=== PATIENT | female | born 1945 | race Caucasian/White ===

== ENCOUNTER → 2021-09-19 | Outpatient (CLI) | payer MEDICARE ==
--- NOTE | 2021-09-19 15:08 | RAD ---
EXAMINATION: CT abdomen and pelvis without IV contrast. INDICATION:75 years, Female, kidney stones. TECHNIQUE: Axial CT images of the abdomen and pelvis were obtained. Coronal and sagittal reformatted performed. COMPARISON: None. Exposure: One or more of the following individualized dose reduction techniques were utilized for thi s examination: 1. Automated exposure control 2. Adjustment of the mA and/or kV according to patient size 3. Use of iterative reconstruction technique. FINDINGS: LOWER CHEST: Calcified granuloma in the left lung base. Emphysematous changes in bibasilar lungs. ABDOMEN/PELVIS: Within the limitation of noncontrast exam, There are 4 punctate nonobstructing right nephrolithiasis measuring up to 2 mm. No left nephrolithias is. No hydronephrosis in either kidney. Overdistended urinary bladder. Hysterectomy changes. Normal size and morphology of the liver. Calcified granulomas in the liver and spleen. No splenomegal y. Cholecystectomy. No biliary ductal lesion. Atrophic pancreatic parenchyma. No adrenal nodule. No b owel obstruction. Appendix is not visualized. Large amount of stool in the rectum. Moderate aortoilia c atherosclerotic calcifications without dilation. No pneumoperitoneum or ascites. No lymphadenopathy in the abdomen or pelvis by size criteria. MUSCULOSKELETAL STRUCTURES: Anterior midline abdominal skin eloisa. Chronic appearing mild compression deformity of the superior endplate of L1, L2, L3 and L5 vertebral bodies. Chronic deformity in the left superior pubic ramus a nd pubic body. Sacralization of L5. IMPRESSION: 1. Punctate nonobstructing right nephrolithiasis. No hydronephrosis. 2. Large rectal stool burden. Correlate for constipation. Electronically signed by: Conner Cruz MD (09/19/2021 3:05 PM) [facility]
== END ==
LOC: CT 14:21
PROVIDERS: ATTEND Internal Medicine
DX: N20.0 Calculus of kidney (principal); K56.41 Fecal impaction; I70.0 Atherosclerosis of aorta; M43.27 Fusion of spine, lumbosacral region
CPT/HCPCS: 74176

== ENCOUNTER 2022-01-04 04:49 | Inpatient (IN) | payer MEDICARE ==
[~2022-01-04] VITALS: Ht 167.6 cm; Wt 55.2 kg
--- NOTE | 2022-01-04 05:08 | PHYS DOC ---
Past Medical History Additional Past Medical Histor: RESP FAILURE, HYPERLIPIDEMIA, WEAKNESS Past Surgical History: Cholecystectomy, Hysterectomy, Knee Replacement Additional Past Surgical Histo: R BREAST, CARPAL TUNNEL, BACK, E General Adult EDM: Chief Complaint: SHORTNESS OF BREATH HPI: HPI: Patient is a 76 year old female [facility] Patient has a history of CHF COPD currently on 2 L of nasal cannula supplemental oxygen at baseline comes in with shortness of breath. Patient reports orthopnea. States that started approximately 2 days ago, but became worse overnight. Patient denies any fevers or chills. Denies any cough. Patient denies any chest pain. Patient does admit to smoking up to 5 cigarettes a day. Review of Systems: Review of Systems: Constitutional: Denies fever or chills. [] Eyes: Denies change in visual acuity. [] HENT: Denies nasal congestion or sore throat. [] Respiratory: Shortness of breath. [] Cardiovascular: Orthopnea dyspnea on exertion denies chest pain or edema. [] GI: Denies abdominal pain, nausea, vomiting, bloody stools or diarrhea. [] : Denies dysuria. [] Musculoskeletal: Denies back pain or joint pain. [] Integument: Denies rash. [] Neurologic: Denies headache, focal weakness or sensory changes. [] Endocrine: Denies polyuria or polydipsia. [] Lymphatic: Denies swollen glands. [] Psychiatric: Denies depression or anxiety. [] Heart Score: C/O Chest Pain: No Risk Factors: Risk Factors: DM, Current or recent (<one month) smoker, HTN, HLP, family history of CAD, obesity. Risk Scores: Score 0 - 3: 2.5% MACE over next 6 weeks - Discharge Home Score 4 - 6: 20.3% MACE over next 6 weeks - Admit for Clinical Observation Score 7 - 10: 72.7% MACE over next 6 weeks - Early Invasive Strategies Current Medications: Current Medications Medications (Trade) Dose Ordered Sig/Melvi Start Time Stop Time Status Last Admin Dose Admin Albuterol Sulfate (Ventolin Neb Soln) 2.5 mg 1X ONCE 01/04/22 05:30 01/04/22 05:31 Allergies: Allergies: Allergies Coded Allergies Type Severity Reaction Last Updated Verified prednisone Allergy Severe 01/04/22 Yes Penicillins Allergy Intermediate 01/04/22 Yes Sulfa (Sulfonamide Antibiotics) Allergy Intermediate 01/04/22 Yes tramadol Allergy Intermediate 01/04/22 Yes Physical Exam: PE: Constitutional: Patient is frail , no acute distress, non-toxic appearance. [] HENT: Normocephalic, atraumatic, bilateral external ears normal, oropharynx moist, no oral exudates, nose normal. [] Eyes: PERRLA, EOMI, conjunctiva normal, no discharge. [] Neck: Normal range of motion, no tenderness, supple, no stridor. [] Cardiovascular:Heart rate regular rhythm, no murmur [] Lungs & Thorax: Perihilar wheezing. Patient has rales heard in both lungs bilaterally. Labored breathing tachypneic. Abdomen: Bowel sounds normal, soft, no tenderness, no masses, no pulsatile masses. [] Skin: Warm, dry, no erythema, no rash. [] Back: No tenderness, no CVA tenderness. [] Extremities: No tenderness, no cyanosis, no clubbing, ROM intact, no edema. [] Neurologic: Alert and oriented X 3, normal motor function, normal sensory function, no focal deficits noted. [] Psychologic: Affect normal, judgement normal, mood normal. [] Current Patient Data: Vital Signs: Vital Signs Date Time Temp Pulse Resp B/P (MAP) Pulse Ox O2 Delivery O2 Flow Rate FiO2 01/04/22 05:01 98.4 74 27 166/79 (108) 97 Nasal Cannula 3.0 98.4 EKG: EKG: [] Patient is EKG demonstrates normal sinus rhythm with a heart rate of 74 with a QTC of 425 and a KS interval of 130. Otherwise normal EKG with no signs of ischemia Radiology/Procedures: Radiology/Procedures: [] Course & Med Decision Making: Course & Med Decision Making Pertinent Labs and Imaging studies reviewed. (See chart for details) []Discussed case with Dr Mckeon, patient admitted. Started on macrolide for COPD exacerbation. Dragon Disclaimer: Dragon Disclaimer: This electronic medical record was generated, in whole or in part, using a voice recognition dictation system. Departure Departure Referrals: CLARY MCKEON MD (PCP) NATASHA MATTA DO Jan 04, 2022 05:08
[2022-01-04 05:12] LABS: BASO # 0.1 x10^3/uL (0.0-0.2); BASO % 1 % (0-3); EOS # 0.3 x10^3/uL (0.0-0.7); EOS % 3 % (0-3); HEMATOCRIT 42.7 % (36.0-47.0); HEMOGLOBIN 14.5 g/dL (12.0-15.5); LYMPH # 1.7 x10^3/uL (1.0-4.8); LYMPH % 15 % (24-48); MEAN CORPUSCULAR HEMOGLOBIN 32 pg (25-35); MEAN CORPUSCULAR HGB CONC 34 g/dL (31-37); MEAN CORPUSCULAR VOLUME 94 fL (79-100); MONO # 0.7 x10^3/uL (0.0-1.1); MONO % 6 % (0-9); NEUT # 8.4 x10^3/uL (1.8-7.7); NEUT % 76 % (31-73); PLATELET COUNT 235 x10^3/uL (140-400); RED BLOOD COUNT 4.56 x10^6/uL (3.50-5.40); RED CELL DISTRIBUTION WIDTH 13.8 % (11.5-14.5)
[2022-01-04] MEDS ORDERED: NITROGLYCERIN SUBLINGUAL 0.4 MG BOTTLE OF 25. SL PRN (05:15)
[2022-01-04 05:27] LABS: CALCIUM 9.2 mg/dL (8.5-10.1); CREATININE 1.1 mg/dL (0.6-1.0); GFR 48.4; POTASSIUM 4.8 mmol/L (3.5-5.1)
--- NOTE | 2022-01-04 05:27 | EKG ---
[facility] [address] [place] [address] Test Date: 2022-01-04 Test Time: 05:00:21 Pat Name: WILIAM KERR Department: Room: Gender: F Keno Writer / Runner: : 1945 Requested By: NATASHA MATTA Order Number: [id number] Reading MD: Tai Tinoco Measurements Intervals [place] Rate: 74 P: 90 [place]: 130 QRS: 65 QRSD: 70 T: 66 QT: 378 QTc: 425 Interpretive Statements SINUS RHYTHM Electronically Signed On 01-07-2022 17:26:38 CDT by Tai Tinoco
[2022-01-04] MEDS ORDERED: methylPREDNISolone SOD SUCC PF 40 MG/ML VIAL. IV ONE (05:30)
[2022-01-04] MEDS ORDERED: ALBUTEROL SULFATE 2.5 MG/3 ML NEBU. NEB ONE (05:30)
[2022-01-04 05:34] LABS: ALBUMIN 3.8 g/dL (3.4-5.0); ALBUMIN/GLOBULIN RATIO 0.9 (1.0-1.7); TOTAL BILIRUBIN 0.6 mg/dL (0.2-1.0); TOTAL PROTEIN 8.2 g/dL (6.4-8.2)
[2022-01-04] MEDS ORDERED: AZITHROMYCIN 250 MG TABLET. PO ONE ×2 (06:00→06:30)
[2022-01-04 06:07] LABS: BACTERIA,URINE FEW /HPF (0-FEW); RBC,URINE 0 /HPF (0-2)
--- NOTE | 2022-01-04 06:35 | RAD ---
Study: XR CHEST 1V Indication: Shortness of breath. Comparison: None. Findings: Hyperexpanded lungs. Generalized interstitial prominence with some superimposed reticular opacities s uch as at the upper right lung. No confluent airspace infiltrate. Several small granulomas. No layeri ng effusion or pneumothorax. The cardiomediastinal silhouette is within normal limits for size. Symmetric james. Aortic calcific at herosclerosis. ACDF construct. Osteopenia. Impression: 1. No acute radiographic abnormality of the chest. 2. Probable underlying emphysema with scattered pleuroparenchymal scarring. Electronically signed by: FABIO BENNETT MD (01/04/2022 6:33 AM) [facility]
[2022-01-04 07:00] VITALS: BP 116/47
[2022-01-04] MEDS ORDERED: GABA-585 PO (09:52)
[2022-01-04] MEDS ORDERED: MENT7.6L2 PO (09:52)
[2022-01-04] MEDS ORDERED: SODI50DR NS (09:52)
[2022-01-04] MEDS ORDERED: BISA10SU55 RC (09:52)
[2022-01-04] MEDS ORDERED: LOPE2TAB27 PO (09:52)
[2022-01-04] MEDS ORDERED: HYDR30CR74 TP (09:52)
[2022-01-04] MEDS ORDERED: ACET325T21 PO (09:52)
[2022-01-04] MEDS ORDERED: DEXT15DR5 EACHEYE (09:52)
[2022-01-04] MEDS ORDERED: HALO2TAB PO (09:52)
[2022-01-04] MEDS ORDERED: ESCITALOPRAM OX10 MG PO (09:52)
--- NOTE | 2022-01-04 10:00 | NUR ---
Admission note: The patient Jackeline Marks 76 y/o female admitted due to COPD exacerbation. She arrived on the unit via stretcher at 0710. She is AOx 4, on 3 liters oxygen per nasal cannula, VSS, and denies pain. Her home meds were reconciled and belongings checked. The patient ambulates short distances with standby assist, uses wheelchair, and oxygen in [facility]. The patient was oriented to the unit and call light placed within reach.
[2022-01-04] MEDS ORDERED: TRAZ-123 PO (10:05)
[2022-01-04] MEDS ORDERED: IPRA3AMP29 NEB (10:05)
[2022-01-04] MEDS ORDERED: MAGN400O7 PO (10:05)
[2022-01-04] MEDS ORDERED: ONDA4TAB12 PO (10:05)
[2022-01-04] MEDS ORDERED: OXYC10TA PO (10:05)
[2022-01-04] MEDS ORDERED: UMEC62.5 IH (10:05)
[2022-01-04] MEDS ORDERED: MOR20SL SL (10:05)
[2022-01-04] MEDS ORDERED: SENN-82 PO (10:05)
[2022-01-04] MEDS ORDERED: CETI10TA74 PO (10:05)
[2022-01-04] MEDS ORDERED: PHEN100C PO (10:05)
[2022-01-04] MEDS ORDERED: PROVENTIL HFA6.7 G2 INH (10:05)
[2022-01-04 11:00] VITALS: BP 110/42
[2022-01-04] MEDS: NICOTINE 7MG PATCH. TD SCH (11:26)
[2022-01-04] MEDS ORDERED: IV DEXTROSE 5% 250 ML BAG. IV PRN (11:30)
[2022-01-04] MEDS ORDERED: IPRATRPIUM/ALBUTEROL 0.5/2.5MG 3 ML NEBU. NEB PRN (11:30)
[2022-01-04] MEDS ORDERED: SENNOSIDES/DOCUSATE 8.6/50MG TABLET. PO PRN (11:30)
[2022-01-04] MEDS ORDERED: ACETAMINOPHEN 325 MG TABLET. PO PRN (11:30)
[2022-01-04] MEDS ORDERED: DEXTROSE 50% 25 GM / 50ML DISP.SYRIN. IV PRN (11:30)
[2022-01-04] MEDS ORDERED: HYDROCORTISONE 2.5% RECTAL CREAM 30GM TUBE. TP PRN (11:30)
[2022-01-04] MEDS ORDERED: ONDANSETRON ODT 4 MG TAB.RAPDIS. PO PRN (11:30)
[2022-01-04] MEDS ORDERED: MORPHINE SULFATE 20 MG/ML CONC SOLUTION. SL PRN (11:30)
[2022-01-04] MEDS ORDERED: NON FORMULARY ITEM (Albuterol Sulfate (Proventil Hfa) 2 PUFF) INH PRN (11:30)
[2022-01-04] MEDS ORDERED: LOPERAMIDE 2 MG CAPSULE PO PRN (12:00)
[2022-01-04] MEDS ORDERED: BISACODYL 10 MG SUPP.RECT. RC SCH (12:00)
[2022-01-04] MEDS: INSULIN LISPRO 300 UNITS/3 ML VIAL. SQ SCH ×2 (12:00→16:43)
[2022-01-04] MEDS ORDERED: oxyCODONE IR 5 MG TABLET PO PRN (12:15)
--- NOTE | 2022-01-04 12:15 | HP ---
DATE OF SERVICE: 01/04/2022 ADMIT DATE: 01/04/2022 HISTORY OF PRESENT ILLNESS: The patient is a 76-year-old female patient, a resident at [facility] in [place] and who presented to the Emergency Room with a complaint of shortness of breath that has been going on for a few days. She did complain also of orthopnea. All her symptoms started 2 days ago and worsened progressively overnight. Denied any fever or chills. Denied any chest pain. She unfortunately continued to smoke up to 5 cigarettes a day. She was extensively investigated in the Emergency Room, has had lab work and imaging studies. Her lab work was unremarkable. White cell count was slightly elevated at 11,000 and has had a chest x-ray, which showed that the lungs are hyperexpanded, generalized interstitial prominence with some superimposed reticular opacities such as at the upper right lung. No confluent airspace infiltrates, several small granulomas. No layering, effusion or pneumothorax. The cardiomediastinal silhouette is within normal limits of size, symmetric james, aortic calcific atherosclerosis. She has ACDF construct in her neck with osteopenia and the impression was no acute radiographic abnormality of the chest, probable underlying emphysema with scattered pleural parenchymal scarring. The patient was admitted with COPD exacerbation and she was treated with IV Solu-Medrol and Zithromax and was admitted for further evaluation. She continued to be on oxygen at 3 liters per nasal cannula. PAST MEDICAL HISTORY: Significant for type 2 diabetes mellitus, hypertension, hyperlipidemia, gastroesophageal reflux disease, chronic constipation, chronic hypoxic respiratory failure, chronic diastolic congestive heart failure, seizure disorder, depression. She is known to have also history of chronic kidney disease and nondisplaced left medial patellar fracture. PAST SURGICAL HISTORY: Significant for C6-C7 ACDF with C5-C7 plating and bone grafting, history of tonsillectomy, appendectomy, cholecystectomy, total abdominal hysterectomy, bilateral salpingo-oophorectomy and left total knee arthroplasty. ALLERGIES: SHE IS ALLERGIC TO PREDNISONE, TRAMADOL, PENICILLIN AND SULFA DRUGS. CODE STATUS: DNR/DNI. FAMILY HISTORY: Noncontributory. SOCIAL HISTORY: She is , is [facility] She has 1 daughter. She unfortunately continued to smoke at least 5 cigarettes a day, does not drink alcohol or use recreational drugs. She is a retired RECORDS TECHNICIAN. REVIEW OF SYSTEMS: As per history of present illness. PHYSICAL EXAMINATION: GENERAL: On arrival to the Emergency Room, she was somewhat tachypneic. She was pale and cachectic, but not jaundiced or cyanosed, no lymphadenopathy, no thyromegaly, no jugular venous distention. No lower limb edema. VITAL SIGNS: Her heart rate was 74, blood pressure was 166/79, temperature was 98.4, respiratory rate was 27 and oxygen saturation was 97% on 3 liters of oxygen. HEAD, EYES, EARS, NOSE, AND THROAT: Normocephalic, atraumatic. NECK: Supple. HEART: Showed normal first and second heart sounds. No gallop, rub or murmur. CHEST: Shows central trachea, equally reduced expansion, reduced air entry, bilateral diffuse rhonchi. I could not appreciate any crepitation. ABDOMEN: Scaphoid, soft, nontender. NEUROLOGIC: She is awake, alert, responding appropriately. All cranial nerves intact. She moves extremities without difficulty. She ambulates with a walker. LABORATORY DATA: On arrival to the Emergency Room showed a white cell count of 11,000; hemoglobin 14; hematocrit 42; MCV 94 and platelet count of 235,000. Her chemistry showed a serum sodium 135, potassium 4.8, chloride 99, bicarbonate 31, anion gap of 5, BUN 17, creatinine 1.1. Estimated GFR was 48 mL per minute. Her glucose 158, calcium was 9.2. Total bilirubin, AST, ALT were normal. Alkaline phosphatase slightly elevated. Her beta natriuretic peptide was only 67. Total protein 8.2, albumin was 3.8. Her urinalysis essentially unremarkable and her coronavirus rapid antigen testing was negative. ASSESSMENT: The patient was admitted with acute exacerbation of chronic obstructive pulmonary disease. The patient has a multitude of other medical problems including: A. Type 2 diabetes mellitus. B. Hypertension. C. Hyperlipidemia. D. Gastroesophageal reflux disease. E. Chronic diastolic congestive heart failure. F. Seizure disorder. PLAN: My plan is to continue with all her medications and continue with Solu-Medrol 40 mg IV every 8 hours. Continue with antibiotic. I will repeat her labs again tomorrow. LAYNE/ELDER/MARIA DOLORES DR: LAYNE/jose martin TID: [id number]
[2022-01-04] MEDS: CITALOPRAM 20 MG TABLET. PO SCH (12:33)
[2022-01-04] MEDS: CETIRIZINE HCL 10 MG TABLET. PO SCH (12:33)
[2022-01-04] MEDS ORDERED: ALBUTEROL SULFATE 2.5 MG/3 ML NEBU. NEB PRN (12:45)
[2022-01-04] MEDS ORDERED: IPRATRPIUM/ALBUTEROL 0.5/2.5MG 3 ML NEBU. NEB SCH (13:00)
--- NOTE | 2022-01-04 13:12 | PDOC ---
PULMONARY PROGRESS NOTES DATE: 01/04/22 TIME: 13:12 Vitals Vital Signs Date Time Temp Pulse Resp B/P (MAP) Pulse Ox O2 Delivery O2 Flow Rate FiO2 01/04/22 11:58 95 Nasal Cannula 2.0 01/04/22 11:00 98.4 58 19 110/42 (64) 98.4 Labs Laboratory Tests Test 01/04/22 05:05 01/04/22 05:12 01/04/22 05:30 01/04/22 11:34 White Blood Count 11.0 x10^3/uL (4.0-11.0) Red Blood Count 4.56 x10^6/uL (3.50-5.40) Hemoglobin 14.5 g/dL (12.0-15.5) Hematocrit 42.7 % (36.0-47.0) Mean Corpuscular Volume 94 fL (79-100) Mean Corpuscular Hemoglobin 32 pg (25-35) Mean Corpuscular Hemoglobin Concent 34 g/dL (31-37) Red Cell Distribution Width 13.8 % (11.5-14.5) Platelet Count 235 x10^3/uL (140-400) Neutrophils (%) (Auto) 76 % (31-73) Lymphocytes (%) (Auto) 15 % (24-48) Monocytes (%) (Auto) 6 % (0-9) Eosinophils (%) (Auto) 3 % (0-3) Basophils (%) (Auto) 1 % (0-3) Neutrophils # (Auto) 8.4 x10^3/uL (1.8-7.7) Lymphocytes # (Auto) 1.7 x10^3/uL (1.0-4.8) Monocytes # (Auto) 0.7 x10^3/uL (0.0-1.1) Eosinophils # (Auto) 0.3 x10^3/uL (0.0-0.7) Basophils # (Auto) 0.1 x10^3/uL (0.0-0.2) Sodium Level 135 mmol/L (136-145) Potassium Level 4.8 mmol/L (3.5-5.1) Chloride Level 99 mmol/L (98-107) Carbon Dioxide Level 31 mmol/L (21-32) Anion Gap 5 (6-14) Blood Urea Nitrogen 17 mg/dL (7-20) Creatinine 1.1 mg/dL (0.6-1.0) Estimated GFR (Cockcroft-Gault) 48.4 BUN/Creatinine Ratio 15 (6-20) Glucose Level 158 mg/dL (70-99) Calcium Level 9.2 mg/dL (8.5-10.1) Total Bilirubin 0.6 mg/dL (0.2-1.0) Aspartate Amino Transf (AST/SGOT) 22 U/L (15-37) Alanine Aminotransferase (ALT/SGPT) 15 U/L (14-59) Alkaline Phosphatase 123 U/L (46-116) UP-Cwo-K-Type Natriuretic Peptide 67 pg/mL (0-449) Total Protein 8.2 g/dL (6.4-8.2) Albumin 3.8 g/dL (3.4-5.0) Albumin/Globulin Ratio 0.9 (1.0-1.7) SARS-CoV-2 Antigen (Rapid) Negative (NEGATIVE) Urine Collection Type Unknown Urine Color (Auto) Light yellow Urine Turbidity Clear Urine pH (Auto) 5.0 (<5.0-8.0) Urine Specific [place] 1.012 (1.000-1.030) Urine Protein (Auto) Negative mg/dL (Negative) Urine Glucose (Auto)(UA) Negative mg/dL (Negative) Urine Ketones (Auto) Negative mg/dL (Negative) Urine Blood (Auto) Negative (Negative) Urine Nitrite (Auto) Negative (Negative) Urine Bilirubin (Auto) Negative (Negative) Urine Urobilinogen (Auto) Normal mg/dL (Normal) Urine Leukocyte Esterase (Auto) Negative (Negative) Urine RBC 0 /HPF (0-2) Urine WBC 1-4 /HPF (0-4) Urine Squamous Epithelial Cells Mod /LPF Urine Bacteria Few /HPF (0-FEW) Glucose (Fingerstick) 146 mg/dL (70-99) Laboratory Tests Test 01/04/22 05:05 01/04/22 05:12 01/04/22 05:30 01/04/22 11:34 White Blood Count 11.0 x10^3/uL (4.0-11.0) Red Blood Count 4.56 x10^6/uL (3.50-5.40) Hemoglobin 14.5 g/dL (12.0-15.5) Hematocrit 42.7 % (36.0-47.0) Mean Corpuscular Volume 94 fL (79-100) Mean Corpuscular Hemoglobin 32 pg (25-35) Mean Corpuscular Hemoglobin Concent 34 g/dL (31-37) Red Cell Distribution Width 13.8 % (11.5-14.5) Platelet Count 235 x10^3/uL (140-400) Neutrophils (%) (Auto) 76 % (31-73) Lymphocytes (%) (Auto) 15 % (24-48) Monocytes (%) (Auto) 6 % (0-9) Eosinophils (%) (Auto) 3 % (0-3) Basophils (%) (Auto) 1 % (0-3) Neutrophils # (Auto) 8.4 x10^3/uL (1.8-7.7) Lymphocytes # (Auto) 1.7 x10^3/uL (1.0-4.8) Monocytes # (Auto) 0.7 x10^3/uL (0.0-1.1) Eosinophils # (Auto) 0.3 x10^3/uL (0.0-0.7) Basophils # (Auto) 0.1 x10^3/uL (0.0-0.2) Sodium Level 135 mmol/L (136-145) Potassium Level 4.8 mmol/L (3.5-5.1) Chloride Level 99 mmol/L (98-107) Carbon Dioxide Level 31 mmol/L (21-32) Anion Gap 5 (6-14) Blood Urea Nitrogen 17 mg/dL (7-20) Creatinine 1.1 mg/dL (0.6-1.0) Estimated GFR (Cockcroft-Gault) 48.4 BUN/Creatinine Ratio 15 (6-20) Glucose Level 158 mg/dL (70-99) Calcium Level 9.2 mg/dL (8.5-10.1) Total Bilirubin 0.6 mg/dL (0.2-1.0) Aspartate Amino Transf (AST/SGOT) 22 U/L (15-37) Alanine Aminotransferase (ALT/SGPT) 15 U/L (14-59) Alkaline Phosphatase 123 U/L (46-116) ME-Rav-T-Type Natriuretic Peptide 67 pg/mL (0-449) Total Protein 8.2 g/dL (6.4-8.2) Albumin 3.8 g/dL (3.4-5.0) Albumin/Globulin Ratio 0.9 (1.0-1.7) SARS-CoV-2 Antigen (Rapid) Negative (NEGATIVE) Urine Collection Type Unknown Urine Color (Auto) Light yellow Urine Turbidity Clear Urine pH (Auto) 5.0 (<5.0-8.0) Urine Specific [place] 1.012 (1.000-1.030) Urine Protein (Auto) Negative mg/dL (Negative) Urine Glucose (Auto)(UA) Negative mg/dL (Negative) Urine Ketones (Auto) Negative mg/dL (Negative) Urine Blood (Auto) Negative (Negative) Urine Nitrite (Auto) Negative (Negative) Urine Bilirubin (Auto) Negative (Negative) Urine Urobilinogen (Auto) Normal mg/dL (Normal) Urine Leukocyte Esterase (Auto) Negative (Negative) Urine RBC 0 /HPF (0-2) Urine WBC 1-4 /HPF (0-4) Urine Squamous Epithelial Cells Mod /LPF Urine Bacteria Few /HPF (0-FEW) Glucose (Fingerstick) 146 mg/dL (70-99) Medications Active Scripts Medications Dose Route/Sig Max Daily Dose Days Date Category Zyrtec (Cetirizine Hcl) 10 Mg Tablet 1 Tab PO DAILY 01/04/22 Reported Ondansetron Odt (Ondansetron) 4 Mg Tab.rapdis 1 Tab PO PRN Q6-8HRS 01/04/22 Reported Trazodone Hcl 100 Mg Tablet 1 Tab PO QHS 01/04/22 Reported Senna S Tablet (Sennosides/Docusate Sodium) 1 Each Tablet 1 Each PO PRN DAILY PRN 01/04/22 Reported Proventil Hfa (Albuterol Sulfate) 6.7 Gm Hfa.aer.ad 2 Puff INH PRN Q6HRS PRN 01/04/22 Reported Dilantin (Phenytoin Sodium Extended) 100 Mg Capsule 2 Cap PO HS 01/04/22 Reported Oxycodone Hcl Immed.release (Oxycodone Hcl) 10 Mg Tablet 1 Tab PO PRN Q4HRS PRN MDD 3 Tablet(s) 30 01/04/22 Reported Roxanol Conc (Morphine Sulfate) 20 Mg/1 Ml Solution 0.5 Ml SL PRN Q2HR PRN 01/04/22 Reported Milk Of Magnesia (Magnesium Hydroxide) 400 Mg/5 Ml Oral.susp 30 Ml PO DAILY 01/04/22 Reported Duoneb 0.5-3(2.5) Mg/3 Ml (Albuterol/Ipratropium) 3 Ml Ampul.neb 3 Ml NEB PRN Q6HRS PRN 01/04/22 Reported Incruse Ellipta (Umeclidinium [place]) 62.5 Mcg Blst.w.dev 62.5 Mcg IH DAILY 01/04/22 Reported Loperamide (Loperamide Hcl) 2 Mg Tablet 2 Mg PO PRN Q6HRS PRN 01/04/22 Reported Hydrocortisone 30 Gm Cream.appl 1 Darrell TP PRN Q2HR PRN 7 01/04/22 Reported Haloperidol 2 Mg Tablet 0.5 Tab PO QHS 01/04/22 Reported Gabapentin (Gabapentin) 100 Mg Capsule 200 Mg PO TID 01/04/22 Reported Escitalopram Oxalate 10 Mg Tablet 0.5 Tab PO DAILY 01/04/22 Reported Cough Drops (Menthol) 7.6 Mg Lozenge 1 Tab PO PRN Q2HR PRN 3 01/04/22 Reported Dulcolax (Bisacodyl) 10 Mg Supp.rect 1 Supp RC Q3DAYS 10 01/04/22 Reported [place] Saline (Sodium Chloride) 50 Ml Drops 2 Drop NS TID 01/04/22 Reported Artificial Tears Eye Drops (Dextran 70/Hypromellose) 15 Ml Drops 2 Drop EACHEYE TID 01/04/22 Reported Acetaminophen 325 Mg Tablet 2 Tab PO PRN Q4-6HRS PRN 24 01/04/22 Reported Impression . For consult dictated Acute exacerbation COPD Concur with current medical management MARCY LILLY MD Jan 04, 2022 13:12
[2022-01-04] MEDS ORDERED: SODIUM CHL/ALOE VERA NASAL GEL 14.1GM TUBE. NS SCH (14:00)
[2022-01-04] MEDS ORDERED: POLYVINYL ALCOHOL 1.4% OPHTH SOLUTION 15ML BOTTLE. OU SCH (14:00)
[2022-01-04 15:00] VITALS: BP 123/49
[2022-01-04] MEDS: GABAPENTIN 100 MG CAPSULE. PO SCH ×2 (15:07→21:44)
[2022-01-04] MEDS: methylPREDNISolone SOD SUCC PF 40 MG/ML VIAL. IV SCH ×2 (15:07→23:00)
[2022-01-04] MEDS ORDERED: POLYVINYL ALCOHOL 1.4% OPHTH SOLUTION 15ML BOTTLE. OU PRN (15:15)
[2022-01-04] MEDS ORDERED: SODIUM CHL/ALOE VERA NASAL GEL 14.1GM TUBE. NS PRN (15:30)
[2022-01-04 19:00] VITALS: BP 111/53
[2022-01-04] MEDS: PHENYTOIN SODIUM EXTENDED 100 MG CAPSULE PO SCH (21:43)
[2022-01-04] MEDS: traZODone 100 MG TABLET. PO SCH (21:43)
[2022-01-04] MEDS: HALOPERIDOL 2 MG TABLET. PO SCH (21:43)
--- NOTE | 2022-01-04 21:53 | CONS ---
DATE OF CONSULTATION: 01/04/2022 ATTENDING PHYSICIAN: Louie Cuevas MD CONSULTING PHYSICIAN: Ronald Ford MD REASON FOR CONSULTATION: The patient is seen in pulmonary consultation at the request of Dr. Cuevas for increasing shortness of air. HISTORY OF PRESENT ILLNESS: The patient is a 76-year-old with chronic respiratory failure, normally on 2 liters of oxygen supplementation. She resides at [facility] and has been there for approximately 8 months. She smokes approximately 5-10 cigarettes per day. Presented with increasing shortness of breath, wheeze, unable to tolerate activities of daily living. She had a chest x-ray, which I personally reviewed. There are some chronic changes. She was admitted. I was asked to see her in consultation. The patient continues to wheeze and be short of breath. She is unable to tolerate walking from the bed to the bathroom without becoming severely short of breath and tachycardic. PAST MEDICAL HISTORY: Remarkable for chronic respiratory failure, hyperlipidemia, COPD, tobacco dependent, type 2 diabetes, hypertension, gastroesophageal reflux, chronic diastolic heart failure, depression, seizure disorder. She also has a history of chronic kidney disease. PAST SURGICAL HISTORY: She has had multiple surgeries including spine surgery including plating and bone grafting. She has a history of tonsillectomy, appendectomy, cholecystectomy, total abdominal hysterectomy, total knee arthroplasty. ALLERGIES: PREDNISONE, TRAMADOL, PENICILLIN AND SULFA. FAMILY HISTORY: Noncontributory. SOCIAL HISTORY: She is . She resides at [facility]. Smokes 5-10 cigarettes per day. REVIEW OF SYSTEMS: As indicated above, otherwise a 10-point system was reviewed and negative. CURRENT MEDICATIONS: List was reviewed. She is receiving Zithromax, ceftriaxone, nebulized treatment and Solu-Medrol. VACCINATION HISTORY: The patient is up to date with Pneumovax, influenza, and COVID-19. PHYSICAL EXAMINATION: VITAL SIGNS: Stable. O2 saturation was greater than 92%. HEENT: Eyes: The sclerae were nonicteric. NECK: Jugular venous distention was not elevated. No lymphadenopathy. CHEST: Full expansion. LUNGS: Both inspiratory and expiratory wheeze, prolonged expiratory phase. CARDIOVASCULAR: Regular rate and rhythm with S1, S2, no S3. ABDOMEN: Soft. EXTREMITIES: No clubbing or cyanosis. No pitting edema. NEUROLOGIC: The patient was awake, alert, following commands. A detailed neuro exam was not performed. LABORATORY DATA: White count was normal, hemoglobin and hematocrit were noted. Sodium was low. BUN was normal. Creatinine was slightly elevated. Chest x-ray as indicated above revealing some chronic changes. IMPRESSION: 1. Acute on chronic hypoxemic respiratory failure secondary to acute exacerbation of chronic obstructive pulmonary disease. 2. Acute exacerbation of chronic obstructive pulmonary disease. 3. Abnormal x-ray revealing underlying an emphysematous and pleural parenchymal scarring along with possible interstitial lung disease. 4. Tobacco dependent. 5. Other comorbidities as indicated above. PLAN: 1. Continue current IV steroids. 2. Empiric antibiotics for acute nonspecific bronchitis. 3. I think allergy is also a contributing factor. Continue antihistamines. 4. Follow clinical course and make recommendations. 5. Outpatient pulmonary function testing and low-dose screening test for lung cancer. I do appreciate the privilege in sharing in the patient's care. ROSALINDA DR: Esme TID: [id number]
[2022-01-04 23:00] VITALS: BP 93/45
[2022-01-05 03:00] VITALS: BP 100/44
[2022-01-05] MEDS: methylPREDNISolone SOD SUCC PF 40 MG/ML VIAL. IV SCH ×3 (05:59→21:19)
[2022-01-05 07:00] VITALS: BP 112/48
[2022-01-05] MEDS: INSULIN LISPRO 300 UNITS/3 ML VIAL. SQ SCH ×3 (08:00→17:00)
[2022-01-05 08:04] LABS: BASO % 0 % (0-3); EOS % 0 % (0-3); HEMATOCRIT 41.3 % (36.0-47.0); HEMOGLOBIN 13.7 g/dL (12.0-15.5); LYMPH # 1.8 x10^3/uL (1.0-4.8); LYMPH % 19 % (24-48); MEAN CORPUSCULAR HEMOGLOBIN 31 pg (25-35); MEAN CORPUSCULAR HGB CONC 33 g/dL (31-37); MEAN CORPUSCULAR VOLUME 94 fL (79-100); MONO # 0.4 x10^3/uL (0.0-1.1); MONO % 4 % (0-9); NEUT # 7.4 x10^3/uL (1.8-7.7); NEUT % 77 % (31-73); PLATELET COUNT 240 x10^3/uL (140-400); RED BLOOD COUNT 4.39 x10^6/uL (3.50-5.40); RED CELL DISTRIBUTION WIDTH 13.6 % (11.5-14.5); WHITE BLOOD COUNT 9.6 x10^3/uL (4.0-11.0)
--- NOTE | 2022-01-05 08:59 | PDOC ---
PULMONARY PROGRESS NOTES DATE: 01/05/22 TIME: 08:59 Subjective Patient continues to wheeze she short of breath moving from bed to bathroom, she becomes lightheaded Vitals Vital Signs Date Time Temp Pulse Resp B/P (MAP) Pulse Ox O2 Delivery O2 Flow Rate FiO2 01/05/22 07:00 97.5 60 16 112/48 (69) 98 97.5 01/04/22 20:00 Nasal Cannula 3.0 ROS: No Nausea, No Chest Pain, No Abdominal Pain, No Increase Cough General: Alert Lungs: Wheezing Cardiovascular: S1, S2 Abdomen: Soft, Non-tender Neuro Exam: Alert Extremities: No Edema Skin: Warm Labs Laboratory Tests Test 01/04/22 05:05 01/04/22 05:12 01/04/22 05:30 01/04/22 11:34 White Blood Count 11.0 x10^3/uL (4.0-11.0) Red Blood Count 4.56 x10^6/uL (3.50-5.40) Hemoglobin 14.5 g/dL (12.0-15.5) Hematocrit 42.7 % (36.0-47.0) Mean Corpuscular Volume 94 fL (79-100) Mean Corpuscular Hemoglobin 32 pg (25-35) Mean Corpuscular Hemoglobin Concent 34 g/dL (31-37) Red Cell Distribution Width 13.8 % (11.5-14.5) Platelet Count 235 x10^3/uL (140-400) Neutrophils (%) (Auto) 76 % (31-73) Lymphocytes (%) (Auto) 15 % (24-48) Monocytes (%) (Auto) 6 % (0-9) Eosinophils (%) (Auto) 3 % (0-3) Basophils (%) (Auto) 1 % (0-3) Neutrophils # (Auto) 8.4 x10^3/uL (1.8-7.7) Lymphocytes # (Auto) 1.7 x10^3/uL (1.0-4.8) Monocytes # (Auto) 0.7 x10^3/uL (0.0-1.1) Eosinophils # (Auto) 0.3 x10^3/uL (0.0-0.7) Basophils # (Auto) 0.1 x10^3/uL (0.0-0.2) Sodium Level 135 mmol/L (136-145) Potassium Level 4.8 mmol/L (3.5-5.1) Chloride Level 99 mmol/L (98-107) Carbon Dioxide Level 31 mmol/L (21-32) Anion Gap 5 (6-14) Blood Urea Nitrogen 17 mg/dL (7-20) Creatinine 1.1 mg/dL (0.6-1.0) Estimated GFR (Cockcroft-Gault) 48.4 BUN/Creatinine Ratio 15 (6-20) Glucose Level 158 mg/dL (70-99) Calcium Level 9.2 mg/dL (8.5-10.1) Total Bilirubin 0.6 mg/dL (0.2-1.0) Aspartate Amino Transf (AST/SGOT) 22 U/L (15-37) Alanine Aminotransferase (ALT/SGPT) 15 U/L (14-59) Alkaline Phosphatase 123 U/L (46-116) DS-Uil-H-Type Natriuretic Peptide 67 pg/mL (0-449) Total Protein 8.2 g/dL (6.4-8.2) Albumin 3.8 g/dL (3.4-5.0) Albumin/Globulin Ratio 0.9 (1.0-1.7) SARS-CoV-2 Antigen (Rapid) Negative (NEGATIVE) Urine Collection Type Unknown Urine Color (Auto) Light yellow Urine Turbidity Clear Urine pH (Auto) 5.0 (<5.0-8.0) Urine Specific [place] 1.012 (1.000-1.030) Urine Protein (Auto) Negative mg/dL (Negative) Urine Glucose (Auto)(UA) Negative mg/dL (Negative) Urine Ketones (Auto) Negative mg/dL (Negative) Urine Blood (Auto) Negative (Negative) Urine Nitrite (Auto) Negative (Negative) Urine Bilirubin (Auto) Negative (Negative) Urine Urobilinogen (Auto) Normal mg/dL (Normal) Urine Leukocyte Esterase (Auto) Negative (Negative) Urine RBC 0 /HPF (0-2) Urine WBC 1-4 /HPF (0-4) Urine Squamous Epithelial Cells Mod /LPF Urine Bacteria Few /HPF (0-FEW) Glucose (Fingerstick) 146 mg/dL (70-99) Test 01/04/22 16:39 01/04/22 19:47 01/05/22 06:25 01/05/22 07:22 Glucose (Fingerstick) 100 mg/dL (70-99) 191 mg/dL (70-99) 124 mg/dL (70-99) White Blood Count 9.6 x10^3/uL (4.0-11.0) Red Blood Count 4.39 x10^6/uL (3.50-5.40) Hemoglobin 13.7 g/dL (12.0-15.5) Hematocrit 41.3 % (36.0-47.0) Mean Corpuscular Volume 94 fL (79-100) Mean Corpuscular Hemoglobin 31 pg (25-35) Mean Corpuscular Hemoglobin Concent 33 g/dL (31-37) Red Cell Distribution Width 13.6 % (11.5-14.5) Platelet Count 240 x10^3/uL (140-400) Neutrophils (%) (Auto) 77 % (31-73) Lymphocytes (%) (Auto) 19 % (24-48) Monocytes (%) (Auto) 4 % (0-9) Eosinophils (%) (Auto) 0 % (0-3) Basophils (%) (Auto) 0 % (0-3) Neutrophils # (Auto) 7.4 x10^3/uL (1.8-7.7) Lymphocytes # (Auto) 1.8 x10^3/uL (1.0-4.8) Monocytes # (Auto) 0.4 x10^3/uL (0.0-1.1) Eosinophils # (Auto) 0.0 x10^3/uL (0.0-0.7) Basophils # (Auto) 0.0 x10^3/uL (0.0-0.2) Laboratory Tests Test 01/04/22 11:34 01/04/22 16:39 01/04/22 19:47 01/05/22 06:25 Glucose (Fingerstick) 146 mg/dL (70-99) 100 mg/dL (70-99) 191 mg/dL (70-99) White Blood Count 9.6 x10^3/uL (4.0-11.0) Red Blood Count 4.39 x10^6/uL (3.50-5.40) Hemoglobin 13.7 g/dL (12.0-15.5) Hematocrit 41.3 % (36.0-47.0) Mean Corpuscular Volume 94 fL (79-100) Mean Corpuscular Hemoglobin 31 pg (25-35) Mean Corpuscular Hemoglobin Concent 33 g/dL (31-37) Red Cell Distribution Width 13.6 % (11.5-14.5) Platelet Count 240 x10^3/uL (140-400) Neutrophils (%) (Auto) 77 % (31-73) Lymphocytes (%) (Auto) 19 % (24-48) Monocytes (%) (Auto) 4 % (0-9) Eosinophils (%) (Auto) 0 % (0-3) Basophils (%) (Auto) 0 % (0-3) Neutrophils # (Auto) 7.4 x10^3/uL (1.8-7.7) Lymphocytes # (Auto) 1.8 x10^3/uL (1.0-4.8) Monocytes # (Auto) 0.4 x10^3/uL (0.0-1.1) Eosinophils # (Auto) 0.0 x10^3/uL (0.0-0.7) Basophils # (Auto) 0.0 x10^3/uL (0.0-0.2) Test 01/05/22 07:22 Glucose (Fingerstick) 124 mg/dL (70-99) Medications Active Scripts Medications Dose Route/Sig Max Daily Dose Days Date Category Zyrtec (Cetirizine Hcl) 10 Mg Tablet 1 Tab PO DAILY 01/04/22 Reported Ondansetron Odt (Ondansetron) 4 Mg Tab.rapdis 1 Tab PO PRN Q6-8HRS 01/04/22 Reported Trazodone Hcl 100 Mg Tablet 1 Tab PO QHS 01/04/22 Reported Senna S Tablet (Sennosides/Docusate Sodium) 1 Each Tablet 1 Each PO PRN DAILY PRN 01/04/22 Reported Proventil Hfa (Albuterol Sulfate) 6.7 Gm Hfa.aer.ad 2 Puff INH PRN Q6HRS PRN 01/04/22 Reported Dilantin (Phenytoin Sodium Extended) 100 Mg Capsule 2 Cap PO HS 01/04/22 Reported Oxycodone Hcl Immed.release (Oxycodone Hcl) 10 Mg Tablet 1 Tab PO PRN Q4HRS PRN MDD 3 Tablet(s) 30 01/04/22 Reported Roxanol Conc (Morphine Sulfate) 20 Mg/1 Ml Solution 0.5 Ml SL PRN Q2HR PRN 01/04/22 Reported Milk Of Magnesia (Magnesium Hydroxide) 400 Mg/5 Ml Oral.susp 30 Ml PO DAILY 01/04/22 Reported Duoneb 0.5-3(2.5) Mg/3 Ml (Albuterol/Ipratropium) 3 Ml Ampul.neb 3 Ml NEB PRN Q6HRS PRN 01/04/22 Reported Incruse Ellipta (Umeclidinium [place]) 62.5 Mcg Blst.w.dev 62.5 Mcg IH DAILY 01/04/22 Reported Loperamide (Loperamide Hcl) 2 Mg Tablet 2 Mg PO PRN Q6HRS PRN 01/04/22 Reported Hydrocortisone 30 Gm Cream.appl 1 Darrell TP PRN Q2HR PRN 7 01/04/22 Reported Haloperidol 2 Mg Tablet 0.5 Tab PO QHS 01/04/22 Reported Gabapentin (Gabapentin) 100 Mg Capsule 200 Mg PO TID 01/04/22 Reported Escitalopram Oxalate 10 Mg Tablet 0.5 Tab PO DAILY 01/04/22 Reported Cough Drops (Menthol) 7.6 Mg Lozenge 1 Tab PO PRN Q2HR PRN 3 01/04/22 Reported Dulcolax (Bisacodyl) 10 Mg Supp.rect 1 Supp RC Q3DAYS 10 01/04/22 Reported Victor Saline (Sodium Chloride) 50 Ml Drops 2 Drop NS TID 01/04/22 Reported Artificial Tears Eye Drops (Dextran 70/Hypromellose) 15 Ml Drops 2 Drop EACHEYE TID 01/04/22 Reported Acetaminophen 325 Mg Tablet 2 Tab PO PRN Q4-6HRS PRN 24 01/04/22 Reported Impression . IMPRESSION: 1. Acute on chronic hypoxemic respiratory failure secondary to acute exacerbation of chronic obstructive pulmonary disease. 2. Acute exacerbation of chronic obstructive pulmonary disease. 3. Abnormal x-ray revealing underlying an emphysematous and pleural parenchymal scarring along with possible interstitial lung disease. 4. Tobacco dependent. 5. Other comorbidities as indicated above. P Plan . Updated 01/05 Patient continues to wheeze, short of breath going from bed to bathroom, at times lightheaded Not safe to discharge home today Will ask PT to evaluate PLAN: 1. Continue current IV steroids. 2. Empiric antibiotics for acute nonspecific bronchitis. 3. I think allergy is also a contributing factor. Continue antihistamines. 4. Follow clinical course and make recommendations. 5. Outpatient pulmonary function testing and low-dose screening test for lung cancer. I do appreciate the privilege in sharing in the patient's care. MARCY LILLY MD Jan 05, 2022 08:59
[2022-01-05] MEDS ORDERED: NON FORMULARY ITEM (Umeclidinium Bromide (Incruse Ellipta) 62.5 MCG) IH SCH (09:00)
[2022-01-05] MEDS: MAGNESIUM HYDROXIDE 2,400 MG/30 ML ORAL.SUSP. PO SCH (09:00)
[2022-01-05 09:35] LABS: ALBUMIN 3.3 g/dL (3.4-5.0); ALBUMIN/GLOBULIN RATIO 0.8 (1.0-1.7); CREATININE 1.1 mg/dL (0.6-1.0); GFR 48.4; POTASSIUM 4.6 mmol/L (3.5-5.1); TOTAL BILIRUBIN 0.3 mg/dL (0.2-1.0); TOTAL PROTEIN 7.2 g/dL (6.4-8.2)
[2022-01-05] MEDS: NICOTINE 7MG PATCH. TD SCH (10:00)
[2022-01-05] MEDS: BENZOCAINE/MENTHOL LOZENGE. PO PRN ×2 (10:00→21:15)
[2022-01-05] MEDS: CETIRIZINE HCL 10 MG TABLET. PO SCH (10:00)
[2022-01-05] MEDS: CITALOPRAM 20 MG TABLET. PO SCH (10:00)
[2022-01-05] MEDS: GABAPENTIN 100 MG CAPSULE. PO SCH ×3 (10:00→21:15)
[2022-01-05 11:00] VITALS: BP 114/54
[2022-01-05 15:00] VITALS: BP 140/67
[2022-01-05] MEDS: AZITHROMYCIN 250 MG TABLET. PO SCH (18:25)
[2022-01-05 19:00] VITALS: BP 122/80
--- NOTE | 2022-01-05 20:41 | PN ---
DATE: 01/05/2022 SUBJECTIVE: The patient is resting, propped up in bed, continued to complain of cough with scanty sputum. She also continued to have chest tightness and marked wheezing. Unfortunately, SHE IS ALLERGIC TO PREDNISONE and states she starts itching when she take it, although she is tolerating IV Solu-Medrol. PHYSICAL EXAMINATION: GENERAL: When I examined her, she looked pale, cachectic, but no jaundiced or cyanosed. No thyromegaly. No jugular venous distention. No limb edema. VITAL SIGNS: Her heart rate was 60, blood pressure was 112/48, temperature 97.5, respiratory rate was 16 and oxygen saturation was 98% on 3 liters of oxygen. HEAD, EYES, EARS, NOSE, AND THROAT: Normocephalic, atraumatic. NECK: Supple. HEART: Showed normal first and second heart sounds. No gallop or murmur. CHEST: Shows central trachea, equally reduced expansion, reduced air entry, vesicular breath sounds with diffuse bilateral rhonchi. I could not appreciate any crepitation. ABDOMEN: Scaphoid, soft, nontender. NEUROLOGIC: She is grossly intact. Her intake was 980, no output was recorded. LABORATORY DATA: As of this morning showed a white cell count of 9.6, hemoglobin 13.7, hematocrit 41, MCV 94 and platelet count 240,000. Her chemistry showed a serum sodium 139, potassium 4.6, chloride 100, bicarbonate 30, anion gap of 9, BUN 24, creatinine 1.1. Estimated GFR was 48 mL per minute. Her glucose 119, calcium was 9. Total bilirubin, AST, ALT, alkaline phosphatase were normal. Total protein 7.2, albumin 3.3. ASSESSMENT: 1. Acute exacerbation of chronic obstructive pulmonary disease. 2. Acute bronchitis. 3. Chronic hypoxic respiratory failure. 4. The patient has multiple other medical problems including: A. Type 2 diabetes mellitus. B. Hypertension. C. Hyperlipidemia. D. Gastroesophageal reflux disease. E. Chronic diastolic congestive heart failure. F. Seizure disorder. G. Chronic kidney disease. PLAN: My plan is to continue 1 more day with IV steroids. She continued to be very wheezy and tight tomorrow. We will switch her to oral dexamethasone as SHE IS ALLERGIC TO PREDNISONE and then will be discharged back to [facility]. LAYNE/DARLINE DR: LAYNE/jose martin TID: [id number]
[2022-01-05] MEDS: LACTOBACILLUS RHAMNOSUS GG 1 CAPSULE. PO SCH (21:15)
[2022-01-05] MEDS: traZODone 100 MG TABLET. PO SCH (21:15)
[2022-01-05] MEDS: HALOPERIDOL 2 MG TABLET. PO SCH (21:17)
[2022-01-05] MEDS: PHENYTOIN SODIUM EXTENDED 100 MG CAPSULE PO SCH (21:17)
[2022-01-05 23:00] VITALS: BP 105/50
[2022-01-06] MEDS: methylPREDNISolone SOD SUCC PF 40 MG/ML VIAL. IV SCH (05:56)
[2022-01-06 07:00] VITALS: BP 116/50
[2022-01-06] MEDS: INSULIN LISPRO 300 UNITS/3 ML VIAL. SQ SCH ×2 (08:00→12:00)
[2022-01-06] MEDS: CITALOPRAM 20 MG TABLET. PO SCH (08:59)
[2022-01-06] MEDS: GABAPENTIN 100 MG CAPSULE. PO SCH (08:59)
[2022-01-06] MEDS: LACTOBACILLUS RHAMNOSUS GG 1 CAPSULE. PO SCH (08:59)
[2022-01-06] MEDS: NICOTINE 7MG PATCH. TD SCH (08:59)
[2022-01-06] MEDS: AZITHROMYCIN 250 MG TABLET. PO SCH (08:59)
[2022-01-06] MEDS: BENZOCAINE/MENTHOL LOZENGE. PO PRN (08:59)
[2022-01-06] MEDS: CETIRIZINE HCL 10 MG TABLET. PO SCH (08:59)
[2022-01-06] MEDS: MAGNESIUM HYDROXIDE 2,400 MG/30 ML ORAL.SUSP. PO SCH (09:00)
--- NOTE | 2022-01-06 09:34 | PDOC ---
PULMONARY PROGRESS NOTES DATE: 01/06/22 TIME: 09:33 Subjective Patient feels better and wants to go home. Vitals Vital Signs Date Time Temp Pulse Resp B/P (MAP) Pulse Ox O2 Delivery O2 Flow Rate FiO2 01/06/22 08:37 96 Nasal Cannula 2.0 01/06/22 07:00 97.9 53 16 116/50 (72) 97.9 ROS: No Nausea, No Chest Pain, No Abdominal Pain, No Increase Cough General: Alert Lungs: Wheezing (Improved) Cardiovascular: S1, S2 Abdomen: Soft, Non-tender Neuro Exam: Alert Extremities: No Edema Skin: Warm Labs Laboratory Tests Test 01/04/22 11:34 01/04/22 16:39 01/04/22 19:47 01/05/22 06:25 Glucose (Fingerstick) 146 mg/dL (70-99) 100 mg/dL (70-99) 191 mg/dL (70-99) White Blood Count 9.6 x10^3/uL (4.0-11.0) Red Blood Count 4.39 x10^6/uL (3.50-5.40) Hemoglobin 13.7 g/dL (12.0-15.5) Hematocrit 41.3 % (36.0-47.0) Mean Corpuscular Volume 94 fL (79-100) Mean Corpuscular Hemoglobin 31 pg (25-35) Mean Corpuscular Hemoglobin Concent 33 g/dL (31-37) Red Cell Distribution Width 13.6 % (11.5-14.5) Platelet Count 240 x10^3/uL (140-400) Neutrophils (%) (Auto) 77 % (31-73) Lymphocytes (%) (Auto) 19 % (24-48) Monocytes (%) (Auto) 4 % (0-9) Eosinophils (%) (Auto) 0 % (0-3) Basophils (%) (Auto) 0 % (0-3) Neutrophils # (Auto) 7.4 x10^3/uL (1.8-7.7) Lymphocytes # (Auto) 1.8 x10^3/uL (1.0-4.8) Monocytes # (Auto) 0.4 x10^3/uL (0.0-1.1) Eosinophils # (Auto) 0.0 x10^3/uL (0.0-0.7) Basophils # (Auto) 0.0 x10^3/uL (0.0-0.2) Sodium Level 139 mmol/L (136-145) Potassium Level 4.6 mmol/L (3.5-5.1) Chloride Level 100 mmol/L (98-107) Carbon Dioxide Level 30 mmol/L (21-32) Anion Gap 9 (6-14) Blood Urea Nitrogen 24 mg/dL (7-20) Creatinine 1.1 mg/dL (0.6-1.0) Estimated GFR (Cockcroft-Gault) 48.4 BUN/Creatinine Ratio 22 (6-20) Glucose Level 119 mg/dL (70-99) Calcium Level 9.0 mg/dL (8.5-10.1) Total Bilirubin 0.3 mg/dL (0.2-1.0) Aspartate Amino Transf (AST/SGOT) 15 U/L (15-37) Alanine Aminotransferase (ALT/SGPT) 17 U/L (14-59) Alkaline Phosphatase 111 U/L (46-116) Total Protein 7.2 g/dL (6.4-8.2) Albumin 3.3 g/dL (3.4-5.0) Albumin/Globulin Ratio 0.8 (1.0-1.7) Test 01/05/22 07:22 01/05/22 11:37 01/05/22 17:13 01/05/22 19:52 Glucose (Fingerstick) 124 mg/dL (70-99) 174 mg/dL (70-99) 108 mg/dL (70-99) 175 mg/dL (70-99) Test 01/06/22 07:40 Glucose (Fingerstick) 112 mg/dL (70-99) Laboratory Tests Test 01/05/22 11:37 01/05/22 17:13 01/05/22 19:52 01/06/22 07:40 Glucose (Fingerstick) 174 mg/dL (70-99) 108 mg/dL (70-99) 175 mg/dL (70-99) 112 mg/dL (70-99) Medications Active Scripts Medications Dose Route/Sig Max Daily Dose Days Date Category Zyrtec (Cetirizine Hcl) 10 Mg Tablet 1 Tab PO DAILY 01/04/22 Reported Ondansetron Odt (Ondansetron) 4 Mg Tab.rapdis 1 Tab PO PRN Q6-8HRS 01/04/22 Reported Trazodone Hcl 100 Mg Tablet 1 Tab PO QHS 01/04/22 Reported Senna S Tablet (Sennosides/Docusate Sodium) 1 Each Tablet 1 Each PO PRN DAILY PRN 01/04/22 Reported Proventil Hfa (Albuterol Sulfate) 6.7 Gm Hfa.aer.ad 2 Puff INH PRN Q6HRS PRN 01/04/22 Reported Dilantin (Phenytoin Sodium Extended) 100 Mg Capsule 2 Cap PO HS 01/04/22 Reported Oxycodone Hcl Immed.release (Oxycodone Hcl) 10 Mg Tablet 1 Tab PO PRN Q4HRS PRN MDD 3 Tablet(s) 30 01/04/22 Reported Roxanol Conc (Morphine Sulfate) 20 Mg/1 Ml Solution 0.5 Ml SL PRN Q2HR PRN 01/04/22 Reported Milk Of Magnesia (Magnesium Hydroxide) 400 Mg/5 Ml Oral.susp 30 Ml PO DAILY 01/04/22 Reported Duoneb 0.5-3(2.5) Mg/3 Ml (Albuterol/Ipratropium) 3 Ml Ampul.neb 3 Ml NEB PRN Q6HRS PRN 01/04/22 Reported Incruse Ellipta (Umeclidinium [place]) 62.5 Mcg Blst.w.dev 62.5 Mcg IH DAILY 01/04/22 Reported Loperamide (Loperamide Hcl) 2 Mg Tablet 2 Mg PO PRN Q6HRS PRN 01/04/22 Reported Hydrocortisone 30 Gm Cream.appl 1 Darrell TP PRN Q2HR PRN 7 01/04/22 Reported Haloperidol 2 Mg Tablet 0.5 Tab PO QHS 01/04/22 Reported Gabapentin (Gabapentin) 100 Mg Capsule 200 Mg PO TID 01/04/22 Reported Escitalopram Oxalate 10 Mg Tablet 0.5 Tab PO DAILY 01/04/22 Reported Cough Drops (Menthol) 7.6 Mg Lozenge 1 Tab PO PRN Q2HR PRN 3 01/04/22 Reported Dulcolax (Bisacodyl) 10 Mg Supp.rect 1 Supp RC Q3DAYS 10 01/04/22 Reported [place] Saline (Sodium Chloride) 50 Ml Drops 2 Drop NS TID 01/04/22 Reported Artificial Tears Eye Drops (Dextran 70/Hypromellose) 15 Ml Drops 2 Drop EACHEYE TID 01/04/22 Reported Acetaminophen 325 Mg Tablet 2 Tab PO PRN Q4-6HRS PRN 24 01/04/22 Reported Impression . IMPRESSION: 1. Acute on chronic hypoxemic respiratory failure secondary to acute exacerbation of chronic obstructive pulmonary disease. 2. Acute exacerbation of chronic obstructive pulmonary disease. 3. Abnormal x-ray revealing underlying an emphysematous and pleural parenchymal scarring along with possible interstitial lung disease. 4. Tobacco dependent. 5. Other comorbidities as indicated above. Plan . Updated 01/06 Patient feels better today. She wants to go home. We will start tapering the steroids. Empiric antibiotics. Continue home oxygen. Smoking cessation counseling provided. She is not interested in quitting tob acco. She has been a smoker for 45 years. Outpatient pulmonary function test. RENETTA SINGH MD Jan 06, 2022 09:34
[2022-01-06] MEDS ORDERED: AZIT250T PO (10:02)
[2022-01-06] MEDS ORDERED: DEXA6TAB6 PO (10:02)
--- NOTE | 2022-01-06 10:06 | SNU/HH DC ---
DISCHARGE ORDERS DISCHARGE INFORMATION: DISCHARGE DATE: Jan 06, 2022 FINAL DIAGNOSIS Problems Medical Problems: (1) COPD exacerbation Status: Acute CONDITION ON DISCHARGE: Stable CODE STATUS: Code Status: Full RETIREMENT: SNF STAY <30 DAYS: Yes POST DISCHARGE ORDERS: ACTIVITY ORDERS: Activity as tolerated DIET AFTER DISCHARGE: Regular TREATMENT/EQUIPMENT ORDERS: RESPIRATORY EQUIPMENT NEEDED: Oxygen Physical Therapy For: Evalulation/Treatment Occupational Therapy For: Evaluation/Treatment DISCHARGE MEDICATIONS: Home Meds Active Scripts Azithromycin (ZITHROMAX) 250 Mg Tablet, 250 MG PO DAILY for ANTI-BIOTIC for 5 Days, #5 TAB 0 Refills Prov:CLARY MCKEON MD 01/06/22 Dexamethasone (Decadron) 6 Mg Tablet, 6 MG PO DAILY for copd eXAC for 4 Days, #4 TAB Prov:CLARY MCKEON MD 01/06/22 Reported Medications Cetirizine Hcl (ZYRTEC) 10 Mg Tablet, 1 TAB PO DAILY for itching, #30 TAB 2 Refills 01/04/22 Ondansetron (ONDANSETRON ODT) 4 Mg Tab.rapdis, 1 TAB PO PRN Q6-8HRS for nausea or vomiting, #16 TAB 01/04/22 Trazodone Hcl (TRAZODONE HCL) 100 Mg Tablet, 1 TAB PO QHS for insomnia and unstable mood, #30 TAB 1 Refill 01/04/22 Sennosides/Docusate Sodium (SENNA S TABLET) 1 Each Tablet, 1 EACH PO PRN DAILY PRN for CONSTIPATION, TAB 01/04/22 Albuterol Sulfate (Proventil Hfa) 6.7 Gm Hfa.aer.ad, 2 PUFF INH PRN Q6HRS PRN for COPD, EACH 01/04/22 Phenytoin Sodium Extended (DILANTIN) 100 Mg Capsule, 2 CAP PO HS for seizures, #90 CAP 3 Refills 01/04/22 Oxycodone Hcl (OXYCODONE HCL IMMED.RELEASE) 10 Mg Tablet, 1 TAB PO PRN Q4HRS PRN for pain MDD 3 Tablet(s) for 30 Days, #90 TAB 0 Refills 01/04/22 Morphine Sulfate Conc (ROXANOL CONC ) 20 Mg/1 Ml Solution, 0.5 ML SL PRN Q2HR PRN for pain level 6-10, #1 BOTTLE 0 Refills 01/04/22 Magnesium Hydroxide (MILK OF MAGNESIA) 400 Mg/5 Ml Oral.susp, 30 ML PO DAILY for constipation, MISC 01/04/22 Ipratropium/Albuterol Sulfate (DUONEB 0.5-3(2.5) MG/3 ML) 3 Ml Ampul.neb, 3 ML NEB PRN Q6HRS PRN for wheezing or SOA, EACH 01/04/22 Umeclidinium [place] (Incruse Ellipta) 62.5 Mcg Blst.w.dev, 62.5 MCG IH DAILY for wheezing or SOB 01/04/22 Loperamide Hcl (LOPERAMIDE) 2 Mg Tablet, 2 MG PO PRN Q6HRS PRN for loose stools, TAB 01/04/22 Hydrocortisone (Hydrocortisone) 30 Gm Cream.appl, 1 WINNIE TP PRN Q2HR PRN for itching for 7 Days, #30 GM 0 Refills 01/04/22 Haloperidol (HALOPERIDOL) 2 Mg Tablet, 0.5 TAB PO QHS for paranoid delusions, #30 TAB 1 Refill 01/04/22 Gabapentin (GABAPENTIN ) 100 Mg Capsule, 200 MG PO TID for NEUROGENIC PAIN, CAP 01/04/22 Escitalopram Oxalate (ESCITALOPRAM OXALATE) 10 Mg Tablet, 0.5 TAB PO DAILY for depression, #30 TAB 3 Refills 01/04/22 Menthol (Cough Drops) 7.6 Mg Lozenge, 1 TAB PO PRN Q2HR PRN for COUGH for 3 Days , #18 TAB 0 Refills 01/04/22 Bisacodyl (DULCOLAX) 10 Mg Supp.rect, 1 SUPP RC Q3DAYS for constipation for 10 Days, #10 SUPP 0 Refills 01/04/22 Sodium Chloride (AYR SALINE) 50 Ml Drops, 2 DROP NS TID for nasal dryness, #50 ML 01/04/22 Dextran 70/Hypromellose (ARTIFICIAL TEARS EYE DROPS) 15 Ml Drops, 2 DROP EACHEYE TID for dry eyes, #30 ML 0 Refills 01/04/22 Acetaminophen (ACETAMINOPHEN) 325 Mg Tablet, 2 TAB PO PRN Q4-6HRS PRN for pain or fever for 24 Days, #100 TAB 0 Refills 01/04/22 CLARY MCKEON MD Jan 06, 2022 10:06
[2022-01-06 11:00] VITALS: BP 123/58
--- NOTE | 2022-01-06 11:01 | NUR ---
SS following for discharge planning. SS reviewed pt chart and discussed with pt RN. Pt is LTC resident from [facility], ; fax [phone]. Pt is currently requiring oxygen at three liters nasal canula. COVID19 negative. Discharge orders received and sent to [facility] with clinical updates. Pt will discharge today and return to [facility] via wheelchair transportation. [facility] to contact SS with transportation time. SS will continue to follow for discharge planning. Addendum: 01/06/22 at 1132 by ROMULO BROWN [facility] contacted SS and reported that transportation will come at 1230 for discharge. Pt's RN notified.
--- NOTE | 2022-01-06 12:11 | NUR ---
PATIENT TO DISCHARGE BACK TO [facility] AT 1230, REPORT CALLED TO VICKI (NURSE AT [facility]), QUESTIONS AND CONCERNS ANSWERED. ALL PERSONAL BELONGINGS GATHERED AND PLACED IN BAGS FOR DISCHARGE, SALINE LOCK REMOVED FROM RIGHT FOREARM.
--- NOTE | 2022-01-06 12:40 | NUR ---
PATIENT LEAVES THE UNIT PER W/C AND ACCOMPANIED BY [employer] DRIVER, ALL PERSONAL BELONGINGS SENT WITH PATIENT 02 ON AT 2 LITERS N/C, EMOTIONAL SUPPORT GIVEN, FOLLOW UP APPOINTMENTS ENCOURAGED.
== END 2022-01-06 12:40 | DRG 189 ==
LOC: ER 04:49 → 5 NORTH 05:47
PROVIDERS: ADMIT Internal Medicine; ATTEND Internal Medicine
DX: J96.21 Acute and chronic respiratory failure with hypoxia (principal); I50.32 Chronic diastolic (congestive) heart failure; I13.0 Hypertensive heart and chronic kidney disease with heart failure and stage 1 through stage 4 chronic kidney disease, or unspecified chronic kidney disease; E11.22 Type 2 diabetes mellitus with diabetic chronic kidney disease; E78.5 Hyperlipidemia, unspecified; F17.210 Nicotine dependence, cigarettes, uncomplicated; G40.909 Epilepsy, unspecified, not intractable, without status epilepticus; J20.9 Acute bronchitis, unspecified; J43.9 Emphysema, unspecified; K21.9 Gastro-esophageal reflux disease without esophagitis; M85.80 Other specified disorders of bone density and structure, unspecified site; N18.9 Chronic kidney disease, unspecified; Z66 Do not resuscitate; Z88.8 Allergy status to other drugs, medicaments and biological substances; Z90.710 Acquired absence of both cervix and uterus; Z96.652 Presence of left artificial knee joint; F32.A Depression, unspecified; K59.09 Other constipation; Z90.49 Acquired absence of other specified parts of digestive tract; Z71.6 Tobacco abuse counseling; Z88.0 Allergy status to penicillin; Z88.2 Allergy status to sulfonamides
CPT/HCPCS: 36415; 71045; 80053; 81001; 82962; 83880; 85025; 87426; 93005; 94640; 94760; 96374; J1815; J2920; 99285-25; G0378; J7613